=== PATIENT | male | born 1995 | race Two or more races ===

== ENCOUNTER 2018-06-30 12:48 | Emergency (ER) | payer MEDICAID ==
[~2018-06-30] VITALS: Ht 175.3 cm; Wt 72.1 kg
[~2018-06-30 12:48] MED LIST: HYDROCORTISO28.35 G1 TOPIC; NEOSPORIN TP
[2018-06-30 14:25] VITALS: BP 114/61
[2018-06-30] MEDS ORDERED: Lidocaine 1% Plain 30 ml INJ ONE (14:30)
[2018-06-30] MEDS ORDERED: Bacitracin Oint UD TOPIC ONE ×2 (16:17→16:30)
[2018-06-30] MEDS ORDERED: BACITRACIN-P28.35 GM TP (16:22)
[2018-06-30] MEDS ORDERED: CEPHALEXIN500 MG ORAL (16:22)
[2018-06-30] MEDS ORDERED: ACETAMINOPHEN-1 EAC1 ORAL (16:22)
--- NOTE | 2018-06-30 16:23 | Emergency Room Report ---
History of Present Illness General Chief Complaint: Skin Rash/Abscess Source: Patient Present Illness HPI 23-year-old male patient presents ER complaining of "I think I have an ingrown toenail". Reports history of symptoms in the past on opposite foot. Reports symptoms were present for 2 weeks. Denies recent injury to trauma. reports pain and swelling in toe. Denies fever, chest pain, shortness of breath. Denies diabetes. Requesting work note. Allergies: Coded Allergies: No Known Allergies (Verified Allergy, Mild, 08/01/09) Patient History Past Medical History: see triage record Reviewed Nursing Documentation: PMH: Agreed; PSxH: Agreed Nursing Documentation-PMH Past Medical History: No Stated History Review of Systems All Other Systems: negative except mentioned in HPI Physical Exam Vital Signs Date Time Temp Pulse Resp B/P (MAP) Pulse Ox O2 Delivery O2 Flow Rate FiO2 06/30/18 13:51 98.4 54 14 114/61 97 Room Air 98.4 Sp02 EP Interpretation: reviewed, normal General Appearance: well appearing, no apparent distress, alert, GCS 15, non- toxic Head: normocephalic, atraumatic Eyes: bilateral eye normal inspection, bilateral eye PERRL ENT: hearing grossly normal, normal pharynx, no angioedema, normal voice, uvula midline, moist mucus membranes Neck: full range of motion Respiratory: lungs clear, normal breath sounds, no rhonchi, no respiratory distress, no accessory muscle use, no wheezing, speaking full sentences Cardiovascular #1: regular rate, rhythm, no edema Cardiovascular #2: 2+ dorsalis pedis (R), 2+ dorsalis pedis (L) Musculoskeletal: back normal, digits/nails normal, gait/station normal, normal range of motion, non-tender Neurologic: alert, oriented x3, responsive, motor strength/tone normal, sensory intact Skin: other - right big toe lateral aspect ingrown, overlying erythema and edema, tenderness to palpation Procedures Additional Procedure Procedure Narrative Ingrown toenail. Obtained verbal and written consent for procedure. Toenail and surrounding areas cleaned and prepped with Betadine solution and normal saline. Digital block performed using 5ml 1% lidocaine without epi. After achieving appropriate anesthesia, nail freed from nail bed with blunt dissection using hemostats and dissected section removed after cutting with scissors. Direct pressure used to achieve hemostasis. Toe was then flushed with copious amounts of saline, bacitracin, xeroform, gauze and tape were applied. dressing checked by me afterwards, neurovascularly intact. Patient tolerated procedure well without complication. WBAT with post-op shoe. Will discharge home with abx and pain medication. Medical Decision Making PA Attestation Dr. Rosado is my supervising Physician whom patient management has been discussed with. Diagnostic Impression: Primary Impression: Ingrown left big toenail ER Course Pt. presents to the ED c/o toe pain. Ddx considered but are not limited to ingrown toenail, nail avulsion, paronychia , felon, cellulitis, tinea unguium. Vital signs: are WNL, pt. is afebrile ER COURSE: Physical exam shows: ingrown toenail noted with superimposed infection See procedure note for partial toe nail removal. Informed patient can wash it tomorrow, but do not soak in water. Apply topical abx and redress wound. Followup with risk intern/PCP in 1-2 weeks, provided with contact information for risk intern, contact to schedule appt. Wound check in 2-3 days. ER precautions given. work note provided. DISCHARGE: Rx provided for Keflex Rx provided for Bacitracin Rx provided for Tylenol #3, CURES reviewed. SE drowsiness, do not take prior to drinking, driving, operating heavy machinery. At this time pt is stable for d/c to home. Patient is resting comfortably, in no acute distress, nontoxic appearing, talking without difficulty. Patient to take medications as instructed Will provide with patient care instructions and any necessary prescriptions. Care plan and follow-up instructions provided. Patient instructed to follow-up with primary care provider in 3 - 5 days. Patient questions asked and answered. Patient reports understanding and agreement to treatment plan. ER precautions given. Patient instructed to return to ER immediately for any new or worsening of symptoms including but not limited to increasing SOB, persistent fever, chest pain, intractable vomiting. - Please note that this Emergency Department Report was dictated using [employer] technology software, occasionally this can lead to erroneous entry secondary to interpretation by the dictation equipment. Last Vital Signs Date Time Temp Pulse Resp B/P (MAP) Pulse Ox O2 Delivery O2 Flow Rate FiO2 06/30/18 13:51 98.4 54 14 114/61 97 Room Air 98.4 Disposition: HOME, SELF-CARE Condition: Stable Scripts Acetaminophen With Codeine (T#3) (TYLENOL #3 TAB*) Y Tab 1 TAB ORAL Q6HR PRN for For Pain, #10 TAB Prov: Michael Greco 06/30/18 Bacitracin/Polymyxin B Sulfate (BACITRACIN-POLYMYXIN OINTMENT) 28.35 Gm Oint...g. 1 APPLIC TP BID, #28 GM Prov: Michael Greco 06/30/18 Cephalexin* (KEFLEX*) 500 Mg Capsule 500 MG ORAL EVERY 12 HOURS, #14 CAP 0 Refills Prov: Michael Greco 06/30/18 Referrals: NOT CHOSEN IPA/MD,REFERRING (PCP) Patient Instructions: Ingrown Toenail Additional Instructions: Call to schedule appointment with risk intern, contact information provided. Keep clean and dry. No closed toe shoes. Followup with primary care provider in 3 -5 days for wound check. Take medications as directed. Tylenol #3 can cause drowsiness, do not take prior to drinking, driving, or operative heavy machinery. Patient questions asked and answered. ER precautions given, patient instructed to return to ER immediately for any new or worsening of symptoms. Michael Greco Jun 30, 2018 16:23
[2018-06-30 16:36] VITALS: BP 114/61
== END 2018-06-30 16:36 | disposition home or self-care (01) ==
LOC: EMR 14:12
DX: L60.0 Ingrowing nail (principal)
CPT/HCPCS: 11750; 99283; J2001; Z7502

== ENCOUNTER 2019-11-01 18:56 | Emergency (ER) | payer MEDICAID ==
[~2019-11-01] VITALS: Ht 175.3 cm; Wt 72.6 kg
[~2019-11-01 18:56] MED LIST changes: +ACETAMINOPHEN-1 EAC1 ORAL; +BACITRACIN-P28.35 GM TP; +CEPHALEXIN500 MG ORAL
[2019-11-01 19:12] VITALS: BP 119/70
--- NOTE | 2019-11-01 19:12 | NUR ---
ED Nurse Note: Patient walked in to ED from home c/o generalized rash x 2 days. Noted with small bumps on chest, back and both arms. Denies itching and pain. No fever. No SOB. VSS.
--- NOTE | 2019-11-01 19:15 | NUR ---
ED Nurse Note: ERPA at bedside.
--- NOTE | 2019-11-01 19:28 | Emergency Room Report ---
History of Present Illness General Chief Complaint: Skin Rash/Abscess Source: Patient Present Illness HPI 24-year-old male with no significant past medical history here complaining of generalized body rash x3 days. Complains of pruritus however denies pain. Reports that he just got back from [place] however does not recall coming in contact with any allergens, denies drug use, excess alcohol intake. Denies chest pain, shortness of breath, palpitation, difficulty breathing or swallowing. Denies anaphylaxis. Reports that has not taken medication for symptom relief. Multiple urticarial rash is noted on torso, back, and arms. Allergies: Coded Allergies: No Known Allergies (Verified Allergy, Mild, 08/01/09) Patient History Past Medical History: see triage record Past Surgical History: none Pertinent Family History: none Immunizations: UTD Reviewed Nursing Documentation: PMH: Agreed; PSxH: Agreed Nursing Documentation-PMH Hx Gastrointestinal Problems: Yes - Apendectomy Review of Systems All Other Systems: negative except mentioned in HPI Physical Exam Vital Signs Date Time Temp Pulse Resp B/P (MAP) Pulse Ox O2 Delivery O2 Flow Rate FiO2 11/01/19 19:07 98.4 60 18 119/70 (86) 98 Room Air Sp02 EP Interpretation: reviewed, normal General Appearance: no apparent distress, alert, GCS 15, non-toxic Head: normocephalic, atraumatic Eyes: bilateral eye normal inspection, bilateral eye PERRL ENT: hearing grossly normal, normal pharynx, no angioedema, normal voice Neck: full range of motion, supple, supple/symm/no masses Respiratory: chest non-tender, lungs clear, normal breath sounds, no rhonchi, no wheezing, speaking full sentences Cardiovascular #1: regular rate, rhythm, no edema, no murmur Gastrointestinal: non tender, soft Rectal: deferred Musculoskeletal: back normal Neurologic: alert, motor strength/tone normal, oriented x3, sensory intact, responsive, speech normal Psychiatric: judgement/insight normal, memory normal, mood/affect normal, no suicidal/homicidal ideation Skin: rash - uritacaria body Lymphatic: no adenopathy Medical Decision Making PA Attestation All my diagnosis and treatment plans were reviewed ad discussed with my supervising physician Dr. Coffey Diagnostic Impression: Primary Impression: Allergic urticaria ER Course 24-year-old male with no significant past medical history here complaining of generalized body rash x3 days. Complains of pruritus however denies pain. Reports that he just got back from [place] however does not recall coming in contact with any allergens, denies drug use, excess alcohol intake. Denies chest pain, shortness of breath, palpitation, difficulty breathing or swallowing. Denies anaphylaxis. Reports that has not taken medication for symptom relief. Multiple urticarial rash is noted on torso, back, and arms. Ddx considered but are not limited to: Eczema, scabies, lice, allergic urticaria Vital signs: are WNL, pt. is afebrile H&PE are most consistent with: Allergic urticaria ORDERS: Hydrocortisone cream, Benadryl, Claritin ED INTERVENTIONS: None required at this time. DISCHARGE: At this time pt. is stable for d/c to home. Will provide printed patient care instructions, and any necessary prescriptions. Care plan and follow up instructions have been discussed with the patient prior to discharge. Take medication as directed, follow-up with primary care provider possible referral to tourism radio presenter may be needed, if worsening symptoms return to the emergency room Last Vital Signs Date Time Temp Pulse Resp B/P (MAP) Pulse Ox O2 Delivery O2 Flow Rate FiO2 11/01/19 19:12 98.4 60 18 119/70 98 Room Air Disposition: HOME, SELF-CARE Condition: Stable Scripts Loratadine (CLARITIN) 10 Mg Capsule 10 MG ORAL DAILY, #20 CAP Prov: Siva De Leon 11/01/19 Diphenhydramine Hcl (BENADRYL ALLERGY) 25 Mg Tablet 25 MG PO BEDTIME, #20 TAB Prov: Siva De Leon 11/01/19 Hydrocortisone/Aloe (Hydrocortisone/Aloe 1% Cream*) Y Cr 1 APPLIC TOPIC Q6H PRN for Itching, #30 GM Prov: Siva De Leon 11/01/19 Patient Instructions: Allergies, Rash Additional Instructions: take medication as directed. follow up with primary Doctor. return to ER if worsening symptoms. Siva De Leon Nov 01, 2019 19:28
[2019-11-01] MEDS ORDERED: HYDROCORTISONE-30 GM TOPIC (19:29)
[2019-11-01] MEDS ORDERED: BENADRYL ALLERG25 M1 PO (19:29)
[2019-11-01] MEDS ORDERED: CLARITIN10 M2 ORAL (19:29)
--- NOTE | 2019-11-01 19:33 | NUR ---
ED Nurse Note: Pt cleared by ERMD for discharge. DC instructions/prescription was given and explained to pt and verbalized understanding of teachings. All medical deviecs such as ID band removed. Pt is AAO x4, ambulatory and left with all personal belongings.
== END 2019-11-01 19:40 | disposition home or self-care (01) ==
LOC: EMR 19:39
DX: L50.0 Allergic urticaria (principal); Z90.89 Acquired absence of other organs
CPT/HCPCS: 99282